=== PATIENT | female | born 1950 | race Caucasian/White ===

== ENCOUNTER 2023-10-25 09:37 | Emergency (ER) | payer OTHER ==
[~2023-10-25] VITALS: Ht 165.1 cm; Wt 81.7 kg
[2023-10-25 10:47] LABS: BASOPHILS ABSOLUTE AUTO 0.08 K/mm3 (0.00-0.23); BASOPHILS PERCENT AUTO 1 % (0-2); EOSINOPHILS PERCENT AUTO 5 % (0-6); Hemoglobin 14.9 g/dL (11.5-16.0); IMMATURE GRAN ABSOLUTE AUTO 0.02 K/mm3 (0.00-0.10); IMMATURE GRAN PERCENT AUTO 0 % (0-1); LYMPHOCYTES ABSOLUTE AUTO 4.26 K/mm3 (0.84-5.20); LYMPHOCYTES PERCENT AUTO 41 % (21-46); MONOCYTES ABSOLUTE AUTO 0.67 K/mm3 (0.16-1.47); MONOCYTES PERCENT AUTO 7 % (4-13); Mean Corpuscular HGB 29.4 pg (26.0-34.0); Mean Corpuscular HGB Conc 32.4 g/dL (31.5-36.5); Mean Corpuscular Volume 91 fL (80-100); Mean Platelet Volume 10.1 fL (9.1-12.4); NEUTROPHILS ABSOLUTE AUTO 4.75 K/mm3 (1.96-9.15); NEUTROPHILS PERCENT AUTO 46 % (41-73); Platelet Count 266 K/mm3 (150-400); RDW Coefficient Variation 13.6 % (11.7-14.2); RDW Standard Deviation 45.6 fL (35.1-46.3); Red Blood Cell Count 5.06 M/mm3 (3.80-5.20); White Blood Cell Count 10.28 K/mm3 (4.00-11.30)
[2023-10-25 11:18] LABS: Albumin, Blood 3.4 g/dL (3.4-5.0); Albumin/Globulin Ratio 0.8 (0.8-1.8); Bilirubin, Total 1.5 mg/dL (0.1-1.0); Bun/Creatinine Ratio 20.7 (12.0-20.0); Calcium, Blood 9.2 mg/dL (8.5-10.1); Creatinine, Blood 0.63 mg/dL (0.40-1.00); Globulin, Blood 4.1 g/dL (2.2-4.0); Potassium, Blood 3.6 mmol/L (3.5-5.5); Total Protein, Blood 7.5 g/dL (6.4-8.2)
== END 2023-10-25 14:23 | disposition home or self-care (01) ==
LOC: ER 09:37
PROVIDERS: Student in an Organized Health Care Education/Training Program
DX: R19.00 Intra-abdominal and pelvic swelling, mass and lump, unspecified site (principal); E11.9 Type 2 diabetes mellitus without complications; Z91.018 Allergy to other foods
CPT/HCPCS: 74177; 80053; 83690; 85025; Q9967

== ENCOUNTER 2024-02-23 07:43 | Inpatient (IN) | payer MEDICARE ==
[2024-02-23] VITALS (8 sets, daily range): BP systolic 112–132; BP diastolic 74–92
[~2024-02-23] VITALS: Ht 162.6 cm; Wt 70.0 kg
[2024-02-23] MEDS ORDERED: NS 1,000 ML IV SCH ×3 (08:10→12:25)
[2024-02-23 08:25] LABS: BASOPHILS ABSOLUTE AUTO 0.06 K/mm3 (0.00-0.23); BASOPHILS PERCENT AUTO 0 % (0-2); EOSINOPHILS PERCENT AUTO 0 % (0-6); Hemoglobin 18.9 g/dL (11.5-16.0); IMMATURE GRAN ABSOLUTE AUTO 0.14 K/mm3 (0.00-0.10); IMMATURE GRAN PERCENT AUTO 1 % (0-1); LYMPHOCYTES ABSOLUTE AUTO 2.69 K/mm3 (0.84-5.20); LYMPHOCYTES PERCENT AUTO 13 % (21-46); MONOCYTES ABSOLUTE AUTO 1.84 K/mm3 (0.16-1.47); MONOCYTES PERCENT AUTO 9 % (4-13); Mean Corpuscular HGB 27.8 pg (26.0-34.0); Mean Corpuscular HGB Conc 30.2 g/dL (31.5-36.5); Mean Corpuscular Volume 92 fL (80-100); Mean Platelet Volume 10.9 fL (9.1-12.4); NEUTROPHILS ABSOLUTE AUTO 15.74 K/mm3 (1.96-9.15); NEUTROPHILS PERCENT AUTO 77 % (41-73); Platelet Count 450 K/mm3 (150-400); RDW Coefficient Variation 15.1 % (11.7-14.2); RDW Standard Deviation 46.5 fL (35.1-46.3); Red Blood Cell Count 6.79 M/mm3 (3.80-5.20); White Blood Cell Count 20.47 K/mm3 (4.00-11.30)
[2024-02-23 08:31] LABS: Hematocrit 62.5 % (33.0-51.0)
[2024-02-23 09:24] LABS: Bicarbonate Venous 13.9 mmol/L (24.0-30.0); pH Blood Venous 7.17 (7.34-7.37)
[2024-02-23] MEDS ORDERED: Ondansetron HCl 2 MG / ML 2ML Vial IV ONE (10:30)
[2024-02-23 11:06] LABS: Source, Urine Clean Catch
[2024-02-23 11:09] LABS: Bilirubin, Urine Neg (Neg); Blood, Urine Neg (Neg); Color, Urine Yellow (P-Yellow); Glucose Qualitative, Urine 4+ (Neg); Ketones, Urine 1+ (Neg); Leukocyte Esterase, Urine Neg (Neg); Nitrite, Urine Neg (Neg); Protein, Urine Neg (Neg); Urobilinogen, Urine NORM (Normal)
[2024-02-23 11:15] LABS: Appearance, Urine Hazy (Clear); Red Blood Cells, Urine 0-2 /hpf (0-2); Squamous Epithelial Cells Few /hpf (Few); White Blood Cells, Urine 0-2 /hpf (0-5)
[2024-02-23 11:16] LABS: Amorphous Light (0-Heavy); Bacteria Rare /hpf; Hyaline Casts 0-2 /lpf (0-2); Yeast/Fungi Urine Rare /hpf
[2024-02-23 11:21] LABS: U Amphetamine Screen Not Detected; U Barbituate Screen Not Detected; U Benzodiazapine Screen Not Detected; U Buprenorphine Screen Not Detected; U Cannabinoids Screen Not Detected; U Cocaine Screen Not Detected; U Methadone Screen Not Detected; U Methamphetamine Screen Not Detected; U Opiates Screen Not Detected; U Oxycodone Screen Not Detected; U Phencyclidine Screen Not Detected
[2024-02-23 11:35] LABS: Ethanol (Alcohol), Blood, Med <3 mg/dL; Free Thyroxine 0.76 ng/dL (0.70-1.60); Thyroid Stimulating Hormone 0.418 uIU/mL (0.360-4.800)
[2024-02-23 11:46] LABS: Alanine Aminotransfer (ALT/SGP 20 U/L (12-78); Albumin, Blood 2.9 g/dL (3.4-5.0); Albumin/Globulin Ratio 0.8 (0.8-1.8); Alk Phos 119 U/L (50-136); Anion Gap 26 mmol/L (3-11); Aspartate Aminotrans (AST/SGOT 14 U/L (12-37); Bilirubin, Total 0.6 mg/dL (0.1-1.0); Blood Urea Nitrogen 109 mg/dL (8-24); CO2, Blood 13 mmol/L (21-32); Calcium, Blood 8.9 mg/dL (8.5-10.1); Chloride, Blood 109 mmol/L (98-108); Creatinine, Blood 1.88 mg/dL (0.40-1.00); Globulin, Blood 3.7 g/dL (2.2-4.0); Glomerular Filtration Rate 28 (60-); Potassium, Blood 4.4 mmol/L (3.5-5.5); Sodium, Blood 144 mmol/L (136-145); Total Protein, Blood 6.6 g/dL (6.4-8.2)
[2024-02-23 11:47] LABS: Glucose, Blood 1532 mg/dL (70-99)
[2024-02-23 11:55] LABS: Beta-hydroxybutyrate 58.1 mg/dL (0.2-2.8)
[2024-02-23] MEDS ORDERED: Potassium Acetate 20 MEQ in NS 100 ML IV SCH (12:00)
[2024-02-23] MEDS ORDERED: Insulin Human Regular 100 UNIT in NS 100 ML IV SCH (12:00)
[2024-02-23] MEDS ORDERED: Potassium Chl 20MEQ/Water100ML 100 ML IV SCH (12:05)
[2024-02-23 12:24] LABS: Magnesium, Blood 3.2 mg/dL (1.6-2.4)
[2024-02-23 12:42] LABS: Phosphorus, Blood 9.3 mg/dL (2.5-4.9)
[2024-02-23] MEDS ORDERED: CefTRIAXone Sodium 1,000 MG in NS 100 ML IV ONE (13:00)
[2024-02-23] MEDS ORDERED: CefTRIAXone 1000 MG Vial IM ONE (13:50)
[2024-02-23] MEDS ORDERED: DONEPEZIL HCL5 M2 PO (14:26)
[2024-02-23] MEDS ORDERED: ATOR40TA PO (14:26)
[2024-02-23] MEDS ORDERED: GLIP10 PO (14:26)
[2024-02-23] MEDS ORDERED: PIOGLITAZONE HC15 MG PO (14:27)
[2024-02-23] MEDS ORDERED: METFORMIN HCL500 M3 PO (14:27)
[2024-02-23 14:34] LABS: Glucose, Blood 1457 mg/dL (70-99)
[2024-02-23] MEDS ORDERED: FLU VACC TS2024-25(6MOS UP)/PF 45 MCG/0.5 ML SYRINGE IM PRN (14:45)
[2024-02-23] MEDS ORDERED: NS KCl 20mEq 1,000 ML IV SCH (14:50)
[2024-02-23] MEDS ORDERED: Cefepime HCl 2,000 MG in NS 100 ML IV SCH (14:55)
[2024-02-23] MEDS ORDERED: Vancomycin HCL 1,250 MG in NS 250 ML IV ONE (15:00)
[2024-02-23] MEDS ORDERED: Miconazole Nitrate 28 GM CREAM..G. TOP SCH (15:28)
[2024-02-23 16:11] LABS: Base Excess Venous -15.7 mmol/L; Bicarbonate Venous 14.6 mmol/L (24.0-30.0); PCO2 Venous 24.7 mmHg (38-42); pH Blood Venous 7.27 (7.34-7.37)
[2024-02-23] MEDS ORDERED: Peg 400/Hypromellose/Glycerin 15 DROP/ML BTL BOTHEYES PRN (17:15)
[2024-02-23] MEDS ORDERED: NS 250 ML IV PRN (17:20)
[2024-02-23 17:53] LABS: Glucose, Blood 710 mg/dL (70-99)
[2024-02-23] MEDS ORDERED: Lactated Ringer's 1,000 ML IV ONE (18:00)
[2024-02-23 18:31] LABS: Glucose, Blood 850 mg/dL (70-99)
[2024-02-23] MEDS ORDERED: Ondansetron HCl 2 MG / ML 2ML Vial IV PRN (18:35)
[2024-02-23] MEDS ORDERED: Aspirin 300 MG Supp PR ONE (19:00)
[2024-02-23] MEDS ORDERED: Potassium Chloride 20 MEQ in Lactated Ringer's 1,000 ML IV SCH (19:00)
--- NOTE | 2024-02-23 19:30 | NUR ---
ASSUMPTION OF CARE ASSUMED CARE OF PATIENT AT 1900, BEDSIDE SHIFT REPORT RECEIVED FROM NIKOS RN. PT RESTING IN BED, EYES OPEN, IRREGUALR EYE AND TONGUE MOVEMENT, PROVIDER AWARE. PT MOVES ALL EXTREMITIES EQUALLY BILATERALLY, WITHDRAWS ALL EXTREMITIES TO NOXIOUS STIMULI. PT DOES NOT ANSWER QUESTIONS, DOES NOT FOLLOW DIRECTION WHEN PROMOPTED AND DOES NOT MAKE EYE CONTACT OR TRACK. SCLERA RED BILATERALLY. PT MOANS OUT WITH TURNS/PHYSICAL STIMULATION. HR 90'S SINUS, MAP >65. PT ON 2LPM VIA NC, OXYGEN SATURATION >95%. ABDOMEN SOFT, BOWEL TONES ACTIVE THROUGHOUT. TEMP PAYTON IN PLACE PATENT DRAINING YELLOW URINE TO GRAVITY. DMITRY AREA/THIGHS/ GLUTEAL CREASE RED AND EXCORIATED, MEDICATED PER EMAR. MEPILEX IN PLACE TO GLUTEAL CREASE, PICTURES IN CHART. 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 PIV IN PLACE TO RAC AND LEFT HAND. POWERGLIDE IN PLACE TO SHERMAN. INSULIN INFUSING AT 12.8 UNITS/HR, LR WITH 20MEQ KCL INFUSING AT 300MLS/HR. BED IN LOWEST POSITION, CALL LIGHT WITHIN REACH. CARE CONTINUES.
[2024-02-23 19:31] LABS: Base Excess Venous -10.7 mmol/L; Bicarbonate Venous 16.5 mmol/L (24.0-30.0); PCO2 Venous 37.3 mmHg (38-42); pH Blood Venous 7.25 (7.34-7.37)
--- NOTE | 2024-02-23 19:31 | NUR ---
Pt to floor from ED with family. Insulin gtt adjusted per charting. 1L LR bolus given. Powerglide placed. Noticable swelling in R bicep, Dr. Garcia at [facility], US performed - Dr. Johnson called with the results.
[2024-02-23] MEDS ORDERED: Dose Adjust by Pharmacy XX STA (19:33)
[2024-02-23 19:58] LABS: Anti-Xa UFH, PHA Monitoring <0.10 IU/mL; Cancer Antigen 19-9 68.1 U/mL (2.0-37.0); International Normalized Ratio 1.03
[2024-02-23 19:59] LABS: Bun/Creatinine Ratio 62.9 (12.0-20.0); Calcium, Blood 8.9 mg/dL (8.5-10.1); Creatinine, Blood 1.59 mg/dL (0.40-1.00); Potassium, Blood 3.9 mmol/L (3.5-5.5)
[2024-02-23] MEDS ORDERED: Heparin Sodium,Porcine/0.5 NS 500 ML IV SCH (20:00)
--- NOTE | 2024-02-23 20:25 | NUR ---
PT UPDATE CALLED AND SPOKE WITH DR. HUANG REGARDING PT LABS AND CURRENT ORDERS. ORDERS RECEIVED, OKAY TO DC CTA. SEE MAR FOR MORE INFORMATION. CARE CONTINUES.
[2024-02-23 20:47] LABS: Source, Urine Foley catheter
[2024-02-23 20:54] LABS: Bilirubin, Urine Neg (Neg); Blood, Urine 2+ (Neg); Glucose Qualitative, Urine 4+ (Neg); Ketones, Urine Neg (Neg); Leukocyte Esterase, Urine Neg (Neg); Nitrite, Urine Neg (Neg); Protein, Urine 1+ (Neg); Specific Gravity, Urine 1.015 (1.003-1.022); Urobilinogen, Urine NORM (Normal)
[2024-02-23] MEDS ORDERED: Potassium Chloride 20 MEQ in Sodium Chloride 0.45% 1,000 ML IV SCH (21:00)
[2024-02-23 21:14] LABS: Amorphous Light (0-Heavy); Appearance, Urine Hazy (Clear); Bacteria Mod /hpf; Color, Urine Pale Yellow (P-Yellow); Mucus Light (0-Heavy); Red Blood Cells, Urine 0-2 /hpf (0-2); Squamous Epithelial Cells Rare /hpf (Few)
[2024-02-23 21:52] LABS: Glucose, Blood 426 mg/dL (70-99)
[2024-02-23 22:52] LABS: Base Excess Venous -3.4 mmol/L; Bicarbonate Venous 20.2 mmol/L (24.0-30.0); PCO2 Venous 45.8 mmHg (38-42); pH Blood Venous 7.31 (7.34-7.37)
[2024-02-23 23:43] LABS: Bun/Creatinine Ratio 57.5 (12.0-20.0); Calcium, Blood 8.8 mg/dL (8.5-10.1); Creatinine, Blood 1.46 mg/dL (0.40-1.00); Potassium, Blood 4.2 mmol/L (3.5-5.5)
[2024-02-23 23:52] LABS: Magnesium, Blood 2.8 mg/dL (1.6-2.4)
[2024-02-23 23:58] LABS: Phosphorus, Blood 4.5 mg/dL (2.5-4.9)
[2024-02-24] VITALS (22 sets, daily range): BP systolic 75–155; BP diastolic 53–142
[2024-02-24] MEDS ORDERED: Dextrose 5% 1,000 ML IV SCH ×2 (00:25→08:00)
[2024-02-24 03:06] LABS: Base Excess Venous -2.7 mmol/L; Bicarbonate Venous 20.9 mmol/L (24.0-30.0); PCO2 Venous 44.2 mmHg (38-42); pH Blood Venous 7.33 (7.34-7.37)
[2024-02-24 03:48] LABS: Magnesium, Blood 2.7 mg/dL (1.6-2.4)
[2024-02-24 03:58] LABS: BASOPHILS ABSOLUTE AUTO 0.03 K/mm3 (0.00-0.23); BASOPHILS PERCENT AUTO 0 % (0-2); EOSINOPHILS ABSOLUTE AUTO 0.03 K/mm3 (0.00-0.68); EOSINOPHILS PERCENT AUTO 0 % (0-6); Hematocrit 46.5 % (33.0-51.0); Hemoglobin 15.3 g/dL (11.5-16.0); IMMATURE GRAN ABSOLUTE AUTO 0.07 K/mm3 (0.00-0.10); IMMATURE GRAN PERCENT AUTO 1 % (0-1); LYMPHOCYTES PERCENT AUTO 13 % (21-46); MONOCYTES ABSOLUTE AUTO 1.89 K/mm3 (0.16-1.47); MONOCYTES PERCENT AUTO 13 % (4-13); Mean Corpuscular HGB 28.2 pg (26.0-34.0); Mean Corpuscular HGB Conc 32.9 g/dL (31.5-36.5); Mean Platelet Volume 10.3 fL (9.1-12.4); NEUTROPHILS ABSOLUTE AUTO 11.15 K/mm3 (1.96-9.15); NEUTROPHILS PERCENT AUTO 73 % (41-73); Platelet Count 248 K/mm3 (150-400); RDW Coefficient Variation 13.2 % (11.7-14.2); RDW Standard Deviation 40.4 fL (35.1-46.3); Red Blood Cell Count 5.43 M/mm3 (3.80-5.20); White Blood Cell Count 15.17 K/mm3 (4.00-11.30)
[2024-02-24] MEDS ORDERED: Dose Adjust by Pharmacy XX STA ×3 (03:58→19:25)
[2024-02-24 04:11] LABS: Alanine Aminotransfer (ALT/SGP 18 U/L (12-78); Albumin, Blood 2.5 g/dL (3.4-5.0); Albumin/Globulin Ratio 0.8 (0.8-1.8); Alk Phos 103 U/L (50-136); Anion Gap 10 mmol/L (3-11); Aspartate Aminotrans (AST/SGOT 18 U/L (12-37); Bilirubin, Direct <0.1 mg/dL (0.0-0.3); Bilirubin, Indirect Unable to Calculate mg/dL (0.1-0.7); Bilirubin, Total 0.3 mg/dL (0.1-1.0); Blood Urea Nitrogen 83 mg/dL (8-24); Bun/Creatinine Ratio 64.3 (12.0-20.0); CO2, Blood 23 mmol/L (21-32); Calcium, Blood 8.6 mg/dL (8.5-10.1); Chloride, Blood 137 mmol/L (98-108); Creatinine, Blood 1.29 mg/dL (0.40-1.00); Globulin, Blood 3.3 g/dL (2.2-4.0); Glomerular Filtration Rate 43 (60-); Glucose, Blood 322 mg/dL (70-99); Potassium, Blood 4.5 mmol/L (3.5-5.5); Sodium, Blood 165 mmol/L (136-145); Total Protein, Blood 5.8 g/dL (6.4-8.2)
[2024-02-24 04:11] LABS: Mean Corpuscular Volume 86 fL (80-100)
--- NOTE | 2024-02-24 05:31 | NUR ---
SHIFT SUMMARY PT CONTINUES TO REST IN BED, SLEEPING BUT AROUASBLE. PT WAKING UP MORE THROUGHOUT THE SHIFT. BASELINE DEMENTIA, RESPONSIVE TO VERBAL STIMULI, MOVES EXTREMITIES EQUALLY BILATERALLY, PT INTERMITTENTLY FOLLOWS COMMANDS SUCH SQUEEZING HANDS AND WIGGLING TOES. PT ABLE TO STATE NAME, DOES NOT ANSWER OTHER ORIENTING QUESITONS. PT APPEARS ANXIOUS, FIDGETING WITH LINES/CORDS/IVS. PT AT THE BEDSIDE. HR 80-100'S SINUS, MAP >65. PT ON RA, OXYGEN SATURATION >92%. ABDOMEN SOFT, BOWEL TONES HYPOACTIVE. TEMP PAYTON IN PLACE PATENT DRAINING YELLOW URINE TO GRAVITY. PIV IN PLACE TO RAC, POWERGLIDE IN PLACE TO SHERMAN. INSULIN INFUSING AT 6UNITS/HR, D5 INFUSING AT 125MLS/HR. BED IN LOWEST POSITION, CALL LIGHT WITHIN REACH, CARE CONTINUES.
[2024-02-24] MEDS ORDERED: Metoprolol Tartrate 5 ML IV ONE (06:24)
[2024-02-24] MEDS ORDERED: Metoprolol Tartrate 1 MG/ML 5 ML VIAL IV ONE (06:25)
--- NOTE | 2024-02-24 06:46 | NUR ---
PT UPDATE PT HAD RHYTHM CHANGE, HR INCREASED TO THE 180'S. DR. BURGESS NOTIFIED, EKG PERFORMED SHOWING AFIB WITH RVR. PT GIVEN LOPRESSOR PER ORDERS. DR. BURGESS TO BEDSIDE TO EVALUATE PT, ORDER RECEIVED FOR ECHO TO BE DONE TODAY. CARE CONTINUES.
[2024-02-24] MEDS ORDERED: Diltiazem HCl 5 MG / ML 5ML Vial IV ONE (06:55)
[2024-02-24 07:28] LABS: Bun/Creatinine Ratio 62.5 (12.0-20.0); Calcium, Blood 8.7 mg/dL (8.5-10.1); Creatinine, Blood 1.2 mg/dL (0.40-1.00); Potassium, Blood 4.3 mmol/L (3.5-5.5)
[2024-02-24] MEDS ORDERED: Diltiazem HCl 5 MG / ML 5ML Vial IV STA (08:24)
--- NOTE | 2024-02-24 08:24 | NUR ---
ASSUMED CARE REPORT FROM LYDIA HOUSTON AT 0700. PT RESTING IN BED. SO AT BESIDE. PT MAKES EYE CONTACT, FOLLOWS SIMPLE COMMANDS. ORIENTED TO SELF ONLY. DOES NOT ANSWER ANY OTHER QUESTIONS. NEEDS REPETITIVE REDIRECTION TO NOT ATTEMPT TO PUT BIOX IN MOUTH. AFIB ON MONITOR, GIVEN DILTIZEM s RESULTS, DR KIMBALL AWARE, ADDITIONAL BOLUS ORDERED. BP STABLE. ABD ROUND, SOFT, NON TENDER, BT X 4. NPO D/T AMS. PAYTON IN PLACE, CLEAR YELLOW URINE OUT. PIV X 1, POWERGLIDE TO LUE. DRESSINGS C/D/I. INSULIN GTT, D5 GTT INFUSING. CBG Q1. WILL CONTINUE PLAN OF CARE.
[2024-02-24] MEDS ORDERED: Enoxaparin 30 MG/0.3 ML SYR SC SCH (09:00)
[2024-02-24] MEDS ORDERED: Cefepime HCl 2,000 MG in NS 100 ML IV SCH (09:00)
[2024-02-24 10:22] LABS: Albumin, Blood 2.5 g/dL (3.4-5.0); Albumin/Globulin Ratio 0.7 (0.8-1.8); Bilirubin, Total 0.4 mg/dL (0.1-1.0); Bun/Creatinine Ratio 60.5 (12.0-20.0); Calcium, Blood 8.4 mg/dL (8.5-10.1); Creatinine, Blood 1.14 mg/dL (0.40-1.00); Globulin, Blood 3.4 g/dL (2.2-4.0); Potassium, Blood 4.3 mmol/L (3.5-5.5); Total Protein, Blood 5.9 g/dL (6.4-8.2)
[2024-02-24 11:21] LABS: Hematocrit 44.3 % (33.0-51.0); Hemoglobin 14.3 g/dL (11.5-16.0); Mean Platelet Volume 10.6 fL (9.1-12.4); Platelet Count 240 K/mm3 (150-400)
[2024-02-24 15:33] LABS: Albumin, Blood 2.3 g/dL (3.4-5.0); Albumin/Globulin Ratio 0.8 (0.8-1.8); Bilirubin, Total 0.6 mg/dL (0.1-1.0); Bun/Creatinine Ratio 60.4 (12.0-20.0); Calcium, Blood 8.2 mg/dL (8.5-10.1); Creatinine, Blood 1.01 mg/dL (0.40-1.00); Potassium, Blood 4.2 mmol/L (3.5-5.5); Total Protein, Blood 5.3 g/dL (6.4-8.2)
[2024-02-24] MEDS ORDERED: CefTRIAXone Sodium 1,000 MG in NS 100 ML IV SCH (16:00)
--- NOTE | 2024-02-24 17:23 | NUR ---
SHIFT SUMMARY PT MORE ALERT THIS EVENING. MAKES EYE CONTACT, RECOGNIZES AND STATES NAME OF , UNABLE TO RECALL DAUGHTERS NAME. STATES SHE IS AT HOME. FOLLOWS SIMPLE COMMANDS. SPEAKING IN SHORT SENTENCES. ABLE TO MAKE NEEDS KNOWN. CONTINUES ON D5 AND INSULIN FOR HYPERNATREMIA. CBG q1 HR. LUNGS CLEAR, ON RA, O2 SATS >95%. SR, RATE 90'S. CONVERTED AFTER DILTIZEM 20 MG IVP THIS AM. BP STABLE. HEPARIN GTT CONTINUES. PT TOLERATING SMALL SIPS OF WATER WELL. ABD ROUND, SOFT, GENERALIZED TENDERNESS, BT X 4. PAYTON PATENT, DRAINED 600 ML CLOUDY, FOUL SMELLING URINE. PERIAREA RED, MOIST. FAMILY AT BEDSIDE ENTIRE SHIFT. UPDATED ON PLAN OF CARE. WILL CONTINUE PLAN OF CARE UNTIL REPORT TO ONCOMING NURSE.
--- NOTE | 2024-02-24 20:37 | NUR ---
ASSUMPTION OF CARE ASSUMED CARE OF PATIENT AT 1900, BEDSIDE SHIFT REPORT RECEIVED FROM NIKOS RN. PT RESTING IN BED, ALERT, ORIENTED TO SELF, RECOGNIZES AND INTERACTING WITH AT THE BEDSIDE. PT ABLE TO STATE NAME, NOT ABLE TO ANSWER OTHER ORIENTING QUESTIONS. PT COOPERATIVE WITH CARE, FOLLOWS DIRECTION WHEN PROMPTED, MOVES EXTREMITIES EQUALLY BILATERALLY. PT FOREGETFUL, AGGITATED AT TIMES, BASELINE DEMENTIA DIAGNOSIS. HR 90'S SINUS, MAP >65. PT ON RA, OXYGEN SATURATION >95%. ABDOMEN SOFT, BOWEL TONES ACTIVE THROUGHOUT. PT HAS TEMP PAYTON IN PLACE PATENT DRAINING YELLOW URINE TO GRAVITY, PT AFEBRILE. DMITRY AREA, THIGHS, AND GLUTEAL CREASE EXCORIATED, DIAGNOSED FUNGAL INFECTION, MEDICATED PER EMAR. MEPILEX IN PLACE TO COCCYX. PIV IN PLACE TO RAC, HEPARIN INFUSING AT 7UNITS/HR PER PHARMACY. POWERGLIDE IN PLACE TO SHERMAN INFUSING D5 @ 200MLS/HR WELL INSULIN AT 3.2UNITS/HR. BED IN LOWEST POSITION, CALL LIGHT WITHIN REACH, CARE CONTINUES.
[2024-02-24 22:00] LABS: Albumin, Blood 2.3 g/dL (3.4-5.0); Albumin/Globulin Ratio 0.8 (0.8-1.8); Bilirubin, Total 0.6 mg/dL (0.1-1.0); Bun/Creatinine Ratio 55.2 (12.0-20.0); Calcium, Blood 8.2 mg/dL (8.5-10.1); Creatinine, Blood 0.91 mg/dL (0.40-1.00); Potassium, Blood 3.9 mmol/L (3.5-5.5); Total Protein, Blood 5.3 g/dL (6.4-8.2)
[2024-02-24] MEDS ORDERED: Potassium Chloride 40 MEQ IV ONE (22:20)
[2024-02-24] MEDS ORDERED: Potassium Chl 20MEQ/Water100ML 100 ML IV SCH (22:35)
[2024-02-25] VITALS (13 sets, daily range): BP systolic 102–141; BP diastolic 52–91
[2024-02-25 03:02] LABS: BASOPHILS ABSOLUTE AUTO 0.03 K/mm3 (0.00-0.23); BASOPHILS PERCENT AUTO 0 % (0-2); EOSINOPHILS PERCENT AUTO 3 % (0-6); Hematocrit 36.7 % (33.0-51.0); Hemoglobin 11.9 g/dL (11.5-16.0); Mean Corpuscular HGB 28.1 pg (26.0-34.0); Mean Corpuscular HGB Conc 32.4 g/dL (31.5-36.5); Mean Corpuscular Volume 87 fL (80-100); Mean Platelet Volume 10.2 fL (9.1-12.4); NRBC ABSOLUTE 0.03 K/mm3 (0.00-0.02); NRBC Auto 0.2 /100 WBC (0.0-0.2); Platelet Count 191 K/mm3 (150-400); RDW Coefficient Variation 13.4 % (11.7-14.2); RDW Standard Deviation 42.6 fL (35.1-46.3); Red Blood Cell Count 4.23 M/mm3 (3.80-5.20); White Blood Cell Count 15.88 K/mm3 (4.00-11.30)
[2024-02-25 03:11] LABS: IMMATURE GRAN ABSOLUTE AUTO 0.12 K/mm3 (0.00-0.10); IMMATURE GRAN PERCENT AUTO 1 % (0-1); LYMPHOCYTES ABSOLUTE AUTO 5.76 K/mm3 (0.84-5.20); LYMPHOCYTES PERCENT AUTO 36 % (21-46); MONOCYTES PERCENT AUTO 6 % (4-13); NEUTROPHILS ABSOLUTE AUTO 8.57 K/mm3 (1.96-9.15); NEUTROPHILS PERCENT AUTO 54 % (41-73)
[2024-02-25 03:26] LABS: Albumin, Blood 2.1 g/dL (3.4-5.0); Albumin/Globulin Ratio 0.8 (0.8-1.8); Bilirubin, Total 0.7 mg/dL (0.1-1.0); Bun/Creatinine Ratio 46.1 (12.0-20.0); Calcium, Blood 7.4 mg/dL (8.5-10.1); Creatinine, Blood 0.8 mg/dL (0.40-1.00); Globulin, Blood 2.8 g/dL (2.2-4.0); Potassium, Blood 4.3 mmol/L (3.5-5.5); Total Protein, Blood 4.9 g/dL (6.4-8.2)
[2024-02-25] MEDS ORDERED: Dose Adjust by Pharmacy XX STA (03:30)
--- NOTE | 2024-02-25 05:20 | NUR ---
SHIFT SUMMARY NO ACUTE CHANGES THIS SHIFT. PT CONTINUES TO REST IN BED, PT HAS BEEN AWAKE ALL NIGHT. PT CONFUSED AND FORGETFUL, BASELINE DEMENTIA DIAGNOSIS. PT ABLE TO STATE NAME AND , UNABLE TO ANSWER ANY OTHER ORIENTING QUESTIONS. PT RECOGNIZES AND INTERACTS WITH FAMILY. MOVES EXTREMITIES EQUALLY BILATERALLY. HR 80-90'S SINUS WITH PAC'S, MAP >65. PT ON RA, OXYGEN SATURATION >95%. ABDOMEN SOFT, BOWEL TONES ACTIVE THROUGHOUT. PT HAS TEMP PAYTON IN PLACE PATENT DRAINING TO GRAVITY. PIV IN PLACE TO RAC INFUSING HEPARIN AT 7UNITS/KG/HR PER PHARMACY. POWERGLIDE IN PLACE TO SHERMAN INFUSING D5W @ 200MLS/HR, INSULIN INFUSING AT 4UNITS/HR. BED IN LOWEST POSITION, CALL LIGHT WITHIN REACH, CARE CONTINUES.
[2024-02-25] MEDS ORDERED: Insulin Glargine-Yfgn 100 Unit/mL 3 ML SYR SC ONE (06:00)
--- NOTE | 2024-02-25 06:44 | NUR ---
PT UPDATE SPOKE WITH REGARDING PT LABS, ORDERS RECEIVED, SEE EMAR FOR MORE INFORMATION. CARE CONTINUES.
[2024-02-25 06:53] LABS: Albumin, Blood 2.1 g/dL (3.4-5.0); Albumin/Globulin Ratio 0.8 (0.8-1.8); Bilirubin, Total 0.9 mg/dL (0.1-1.0); Bun/Creatinine Ratio 39.2 (12.0-20.0); Calcium, Blood 7.6 mg/dL (8.5-10.1); Creatinine, Blood 0.79 mg/dL (0.40-1.00); Globulin, Blood 2.7 g/dL (2.2-4.0); Potassium, Blood 3.8 mmol/L (3.5-5.5); Total Protein, Blood 4.8 g/dL (6.4-8.2)
[2024-02-25] MEDS ORDERED: Insulin Human Lispro 100 Units/ML 3ML Syringe SC SCH (07:30)
--- NOTE | 2024-02-25 07:57 | NUR ---
ASSUMED CARE REPORT FROM LYDIA HOUSTON AT 0700. PT RESTING IN BED. ALERT, ORIENTED TO SELF, STATES SHE IS HOSPITAL, UNSURE OF YEAR. FOLLOWS COMMANDS. DENIES NEEDS OR COMPLAINTS. LUNGS CLEAR. ON RA. SR, RATE 70-80'S. BP STABLE. ABD ROUND, SOFT, NON TENDER, BT X 4. PAYTON PATENT, DRAINING TO GRAVITY. PT ABLE TO MAKE NEEDS KNOWN. SO AT BEDSIDE. HEPARIN GTT CONTINUES. WILL CONTINUE PLAN OF CARE.
--- NOTE | 2024-02-25 14:20 | NUR ---
TRANSFER TO MEDICAL FLOOR NO ACUTE CHANGES THIS SHIFT. PT ALERT, ORIENTED TO SELF, FAMILY, AND THAT SHE IS IN A HOSPITAL, UNSURE OF DATE/YR OR LOCATION. FOLLOWS COMMANDS. WORKED c PT THIS SHIFT, STOOD c WALKER AND TRANSFERRED TO CHAIR. LUNGS CLEAR, ON RA. SR, RATE 70-80'S. BP STABLE. PAYTON REMOVED, 1800 ML CLOUDY YELLOW URINE OUT. HEPARIN GTT STOPPED. REPORT TO AMY HOUSTON, PT TRANSFERRED TO 302 c ALL BELONGINGS.
--- NOTE | 2024-02-25 14:33 | NUR ---
TRANSFER PT ARRIVED TO ROOM 302 FROM ICU 1 FROM JUAN PABLO RN BY WHEELCHAIR. TRANSFERRED FROM WHEELCHAIR TO BED BY 1 PERSON ASSIST USING GAITBELT. PT NOT ON FLUIDS. SKIN ASSESSMENT PERFORMED BY THIS RN AND JESSICA HOUSTON. WHEN ASSESSING ORIENTATION, PT DID NOT LOCATION OR WHAT THE DATE WAS. BED IN LOWEST POSITION, CALL LIGHT WITHIN REACH.
--- NOTE | 2024-02-25 17:10 | NUR ---
SHIFT SUMMARY PT A&OX2 TO SELF AND , DID NOT WANT TO GUESS THE DATE AND LOCATION. VERY CONFUSED, KEPT ASKING ABOUT THE BUTTONS ON HER REMOTE AFTER MULTIPLE REINFORCEMENT EFFORTS. IS BEDSIDE AND COMMUNICATES THAT THIS IS PTS BASELINE SINCE HOSPITAL VISIT. PT HAD INCONTINENT EPISODE WHILE WORKING WITH OT, DOES NOT AHVE PAYTON. TELE RUNNING SR 64 BPM. PT SEEMED TO DO WELL WITH 1 PERSON ASSIST USING GAIT BELT AND WALKER. PT IS A LITTLE IMPULSIVE, BED ALARM IS ENGAGED. BED IN LOWESET POSITION, CALL LIGHT WITHIN REACH.
[2024-02-26 02:53] VITALS: BP 102/70
--- NOTE | 2024-02-26 05:11 | NUR ---
SUMMARY: PT A/OX2 BUT IS VERY FORGETFULL W/VERY LIMITED SHORT TERM MEMORY. SHE REQ'S FREQ AND REPEATED REMINDERS AND HAS BED ALARM ON FOR IMPULSIVITY AND FALL RISK. SHE'S PLEASANT AND COOPERATIVE W/STAFF IN ROOM BUT HAS DIFFICULTY FOLLOWING INSTRUCTION AND IS RESTLESS/FIGITY. PT FREQ PULLS ON LINES, PICKS AT IV'S, REMOVES TELE AND PRESSES CALL BUTTONS UNINTENTIONALLY. EDUCATION AND REINFORCEMENT EFFORTS ARE ONLY TEMPORARILY SUCCESSFUL AND REMAINS AT BEDSIDE TO AID W/CARE AND CONFUSION. SHE'S UP W/1PA AND FWW AND WAS CONTINENT W/URGE INCONTINENCE T/O NOCTE. ATTENDS CHANGED PRN AND FREQ DMITRY CARE ATTENDED TO. GROIN, PANUS AND BUTTOCKS ARE RED AND RASHY W/PEELING SKIN. ANTIFUNGAL CREAM APPLIED AND MEPILEX CHANGED PRN. PG AND IV WERE NO LONGER PATENT AND DC'D W/US IV PLACED TO L.ARM. NO ACUTE CHANGES, VSS/AFEBRILE. SHE'S NSR AT 70'S BPM. WCTM AND REPORT TO DAY RN.
[2024-02-26 06:45] LABS: Calcium, Blood 8.3 mg/dL (8.5-10.1); Creatinine, Blood 0.57 mg/dL (0.40-1.00); Potassium, Blood 4.8 mmol/L (3.5-5.5)
[2024-02-26 07:43] VITALS: BP 147/69
[2024-02-26 08:30] LABS: BASOPHILS ABSOLUTE AUTO 0.02 K/mm3 (0.00-0.23); BASOPHILS PERCENT AUTO 0 % (0-2); EOSINOPHILS ABSOLUTE AUTO 0.29 K/mm3 (0.00-0.68); EOSINOPHILS PERCENT AUTO 3 % (0-6); Hematocrit 38.7 % (33.0-51.0); Hemoglobin 12.6 g/dL (11.5-16.0); IMMATURE GRAN ABSOLUTE AUTO 0.07 K/mm3 (0.00-0.10); IMMATURE GRAN PERCENT AUTO 1 % (0-1); LYMPHOCYTES ABSOLUTE AUTO 3.05 K/mm3 (0.84-5.20); LYMPHOCYTES PERCENT AUTO 34 % (21-46); MONOCYTES ABSOLUTE AUTO 0.54 K/mm3 (0.16-1.47); MONOCYTES PERCENT AUTO 6 % (4-13); Mean Corpuscular HGB 27.7 pg (26.0-34.0); Mean Corpuscular HGB Conc 32.6 g/dL (31.5-36.5); Mean Corpuscular Volume 85 fL (80-100); Mean Platelet Volume 10.7 fL (9.1-12.4); NEUTROPHILS ABSOLUTE AUTO 4.92 K/mm3 (1.96-9.15); NEUTROPHILS PERCENT AUTO 55 % (41-73); NRBC ABSOLUTE 0.02 K/mm3 (0.00-0.02); NRBC Auto 0.2 /100 WBC (0.0-0.2); Platelet Count 155 K/mm3 (150-400); RDW Standard Deviation 40.3 fL (35.1-46.3); Red Blood Cell Count 4.55 M/mm3 (3.80-5.20); White Blood Cell Count 8.89 K/mm3 (4.00-11.30)
[2024-02-26] MEDS ORDERED: Insulin Glargine-Yfgn 100 Unit/mL 3 ML SYR SC ONE (09:00)
--- NOTE | 2024-02-26 09:57 | NUR ---
OOB TO COMMODE, REPORT FROM JESSICA HOUSTON, CALL LIGHT WITH IN REACH, USES CALL LIGHT INAPPRIATELY DUE TO CONFUSION, BED ALARM ON
--- NOTE | 2024-02-26 12:23 | NUR ---
REPORTED [address] KIMBALL, DR KIMBALL ENTERING NEW ORDERED, REPORTED TO JESSICA RN, AT BEDSIDE, PATIENT VERY IMPULSIVE AND CONFUSED, VERY POOR SHORT TERM MEMORY, BED ALARM ON
[2024-02-26] MEDS ORDERED: Insulin Human Lispro 100 Units/ML 3ML Syringe SC ONE (13:00)
[2024-02-26 15:58] VITALS: BP 134/68
[2024-02-26] MEDS ORDERED: Insulin Human Lispro 100 Units/ML 3ML Syringe SC SCH (16:00)
--- NOTE | 2024-02-26 16:41 | NUR ---
ARRIVED TO ROOM 345 VIA BED ACCOMPANIED BY
[2024-02-26] MEDS ORDERED: Enoxaparin 40 MG/0.4 ML SYR SC SCH (17:00)
[2024-02-26 20:09] VITALS: BP 140/76
[2024-02-27 03:58] VITALS: BP 169/77
--- NOTE | 2024-02-27 06:53 | NUR ---
SHIFT SUMMARY ASSUMED CARE APPROX 1920. PT UP TO BATHROOM 1745. GAIT STILL WEAK BUT STEADY. EDUCATED ON PUREWIC. PT HAS HAD TO BE REMINDED SEVERAL TIMES THAT SHE IS IN THE HOSPITAL. SHE HAS CONTINUOUSLY ATTEMPTED TO GET OUT OF BED TO GO OUT TO THE LIVING ROOM AND FIND TONY . PT REMINDED TONY IS AT HOME SLEEPING, AND TOLD SHE SHOULD TRY TO GET SOME SLEEP TOO. PT UP OOB TO COMMODE. PT REMINDED SHE HAS A PUREWIC IN PLACE. SHE STATED, I DON T KNOW WHAT THAT IS, BUT I HAVE TO PEE. PT BACK IN HER BED WITH PUREWIC REMOVED, IT SEEMS TO BE CAUSING MORE AGITATION. PT STILL ASKING FOR TONY AND REMINDED AGAIN THAT HE IS AT HOME, AND SHE IS IN THE HOSPITAL. PT SLEEPING SOUNDLY. APPROX 0400, PT UP TO COMMODE, THEN BACK TO BED. PT ASKED WHERE SHE WAS. THIS RN REMINDED HER SHE IS AT [facility] IN [place], ROOM 345 ON THE MEDICAL FLOOR. PT ASKED WHERE HER IS AND WAS REMINDED HE IS AT HOME AND WILL BE BACK TO SEE HER APPROX 0700. SATISFIED, PT WENT BACK TO SLEEP. PT AWAKE, TO THE COMMODE. BACK IN BED, LAYING AWAKE, WAITING FOR HER .
[2024-02-27 07:14] VITALS: BP 133/62
[2024-02-27 08:34] LABS: Bun/Creatinine Ratio 26.8 (12.0-20.0); Calcium, Blood 8.9 mg/dL (8.5-10.1); Creatinine, Blood 0.64 mg/dL (0.40-1.00); Potassium, Blood 4.3 mmol/L (3.5-5.5)
[2024-02-27] MEDS ORDERED: Insulin Glargine-Yfgn 100 Unit/mL 3 ML SYR SC ONE (11:45)
[2024-02-27] MEDS ORDERED: BASAGLAR K100 UNIT/1 SC (12:35)
--- NOTE | 2024-02-27 14:00 | NUR ---
DISCHARGE NOTE: WENT OVER DISCHARGE WITH PATIENT AND PATIENT'S TONY. PATIENT GOT DRESSED AND COLLECTED BELONGINGS; TELE REMOVED. . PATIENT WAS ABLE TO TRANSFER WITH ASSIST TO THE WHEELCHAIR AND WAS WHEELED DOWN BY CLINICAL DIETETIC TECHNICIAN. NO SIGNS OR SYMPTOMS OF DISTRESS DURING DISCHARGE.
== END 2024-02-27 13:56 | disposition home health service (06) | DRG 637 ==
LOC: ER 07:43 → ICUE 07:44 → MEDS 02-24 13:59 → ICUE 02-24 13:59 → MEDS 02-25 14:27
PROVIDERS: Emergency Medicine; Internal Medicine; Student in an Organized Health Care Education/Training Program; ADMIT Family Medicine
PROC: 0T9B70Z Drainage of Bladder with Drainage Device, Via Natural or Artificial Opening (ICD-10-PCS; principal; 2024-02-24)
DX: E11.10 Type 2 diabetes mellitus with ketoacidosis without coma (principal); G93.41 Metabolic encephalopathy; R65.11 Systemic inflammatory response syndrome (SIRS) of non-infectious origin with acute organ dysfunction; I82.611 Acute embolism and thrombosis of superficial veins of right upper extremity; I48.0 Paroxysmal atrial fibrillation; B35.6 Tinea cruris; D75.838 Other thrombocytosis; E86.0 Dehydration; D75.1 Secondary polycythemia; F03.90 Unspecified dementia, unspecified severity, without behavioral disturbance, psychotic disturbance, mood disturbance, and anxiety; Z87.81 Personal history of (healed) traumatic fracture; Z98.890 Other specified postprocedural states; Z91.018 Allergy to other foods; Z79.84 Long term (current) use of oral hypoglycemic drugs
CPT/HCPCS: 36415; 51702; 70450; 71045; 74176; 80048; 80053; 80320; 81001; 82010; 82140; 82248; 82330; 82378; 82570; 82803; 82947; 83036; 83605; 83735; 83880; 84100; 84133; 84300; 84439; 84443; 84484; 85014; 85018; 85025; 85049; 85520; 85610; 85730; 86301; 93005; 93010; 93306; 93971; 94760; 96361-59; 96365-59; 96366-59; 96368; 96372-59; 96375-59; 97110; 97162; 97165; 97530; 97535; 99285-25; A9270; C1751; G0378; J0692; J0696; J1644; J1650; J1815; J2405; J3370; J3480; J7030; J7050; J7070; J7120